=== PATIENT | male | born 1970 | race African-American/Black ===

== ENCOUNTER 2020-03-08 07:57 | Outpatient (REF) | payer OTHER, SELFPAY | END 2020-03-08 07:58 | disposition home or self-care (01) | LOC: HO.LAB 07:57 | PROVIDERS: Visit Provider Internal Medicine | DX: Z20.828 Contact with and (suspected) exposure to other viral communicable diseases (principal) | CPT/HCPCS: C9803; U0003 ==

== ENCOUNTER 2020-03-12 06:15 | Outpatient (REF) | payer OTHER, SELFPAY | END 2020-03-12 06:16 | disposition home or self-care (01) | LOC: HO.LAB 06:15 | PROVIDERS: PCP Internal Medicine; Visit Provider Internal Medicine | DX: Z20.828 Contact with and (suspected) exposure to other viral communicable diseases (principal) | CPT/HCPCS: C9803; U0003 ==